=== PATIENT | female | born 1940 | race Caucasian/White ===

== ENCOUNTER 2021-09-09 12:37 | Inpatient (IN) | payer MEDICARE ==
[~2021-09-09] VITALS: Ht 160 cm; Wt 65.8 kg
[~2021-09-09 12:37] MED LIST: ASPIRIN EC81 MG PO; COREG6.25 MG PO; IBUPROFEN400 MG PO; IMDUR ER TAB 3030 MG PO; K-DUR TAB 20 M20 MEQ PO; LASIX40 MG PO; NITROSTAT0.4 MG SL; NORCO 10-325 T1 EACH PO; ULTRAM50 MG PO; ZESTRIL10 MG PO; ZESTRIL5 MG PO
[2021-09-09 13:13] LABS: HEMOGLOBIN 13.9 gm/dl (12.3-15.3); RED BLOOD COUNT 4.57 M/UL (4.00-5.10); WHITE BLOOD COUNT 7.4 K/UL (4.5-11.0)
[2021-09-09 13:32] LABS: BUN/CREATININE RATIO 35 (0-10)
[2021-09-10] MEDS ORDERED: HYDRALAZINE HCL10 MG PO (11:50)
[2021-09-10] MEDS ORDERED: COREG12.5 MG PO (11:51)
[2021-09-11 03:47] LABS: HEMOGLOBIN 13.3 gm/dl (12.3-15.3); RED BLOOD COUNT 4.4 M/UL (4.00-5.10); WHITE BLOOD COUNT 9.1 K/UL (4.5-11.0)
[2021-09-11 04:10] LABS: BUN/CREATININE RATIO 43 (0-10)
--- NOTE | 2021-09-11 18:54 | NUR ---
IV STARTED 22 GAUGE TO THE LEFT FOREARM X1 STICK PT TOLERATED WELL
[2021-09-12 03:13] LABS: HEMOGLOBIN 13.6 gm/dl (12.3-15.3); RED BLOOD COUNT 4.53 M/UL (4.00-5.10); WHITE BLOOD COUNT 9.3 K/UL (4.5-11.0)
[2021-09-12 03:45] LABS: BUN/CREATININE RATIO 51 (0-10)
--- NOTE | 2021-09-12 13:58 | NUR ---
PT OFF FLOOR FOR MODIFIED B. SWALLOW TEST. PT IN NO ACUTE DISTRESS AT THIS TIME.
--- NOTE | 2021-09-13 04:49 | NUR ---
APPROX 0430 CALLED LAB ABOUT PTT ORDER. THEY ARE SENDING SOMEONE UP TO DRAW NOW.
[2021-09-13 05:08] LABS: HEMOGLOBIN 12.4 gm/dl (12.3-15.3); RED BLOOD COUNT 4.16 M/UL (4.00-5.10)
[2021-09-13 05:17] LABS: WHITE BLOOD COUNT 5.8 K/UL (4.5-11.0)
[2021-09-14 04:52] LABS: HEMOGLOBIN 12.9 gm/dl (12.3-15.3); RED BLOOD COUNT 4.37 M/UL (4.00-5.10)
[2021-09-15 04:33] LABS: HEMOGLOBIN 12.1 gm/dl (12.3-15.3); RED BLOOD COUNT 4.12 M/UL (4.00-5.10); WHITE BLOOD COUNT 6.6 K/UL (4.5-11.0)
[2021-09-15 05:13] LABS: BUN/CREATININE RATIO 53 (0-10)
[2021-09-15] MEDS ORDERED: ASPIRIN EC81 MG PO (11:35)
[2021-09-15] MEDS ORDERED: ATORVASTATIN CA20 MG PO (11:35)
[2021-09-15] MEDS ORDERED: JANTOVEN1 MG PO (11:35)
[2021-09-15] MEDS ORDERED: HUMALOG 10100 UNITS/ SC (11:35)
[2021-09-15] MEDS ORDERED: LISINOPRIL5 MG PO (11:35)
[2021-09-15] MEDS ORDERED: GLUCOPHAGE 850850 MG PO (11:39)
--- NOTE | 2021-09-15 12:09 | NUR ---
[facility] STATES THAT THEY WILL SEND A TRUCK TO TRANSPORT PATIENT SOON THEY CAN. I MADE THE BUCKET WASH OPERATOR AWARE THAT THE PATIENTMUST BE AT THE ACCEPTING FACILITY BY 1600 AND SHE VERBALIZED UNDERSTANING.
--- NOTE | 2021-09-15 14:58 | NUR ---
[facility] STATES THAT THIS TIME THAT THEY ARE ON AN OUT OF COUNTY RUN AND THEN THEY WILL BRING THE TRUCK HERE
--- NOTE | 2021-09-15 15:37 | NUR ---
SPORTS EQUIPMENT REPAIRER CALLED AT THIS TIME AND STATED THAT THE PATIENT WILL BE TRANFERED SATURDAY DUE TO NOT HAVING AN AMBUALANCE ON TIME. PATIENT AND FAMILY MADE AWARE AT THIS TIME. I ALSO CALLED [facility] AT THIS TIME AND CANCELLED TRANSPORT.
[2021-09-16 05:08] LABS: HEMOGLOBIN 12.4 gm/dl (12.3-15.3); RED BLOOD COUNT 4.25 M/UL (4.00-5.10); WHITE BLOOD COUNT 7.4 K/UL (4.5-11.0)
[2021-09-16 05:32] LABS: BUN/CREATININE RATIO 54 (0-10)
[2021-09-17 03:24] LABS: HEMOGLOBIN 12.4 gm/dl (12.3-15.3); RED BLOOD COUNT 4.27 M/UL (4.00-5.10); WHITE BLOOD COUNT 7.6 K/UL (4.5-11.0)
[2021-09-17 03:49] LABS: BUN/CREATININE RATIO 50 (0-10)
[2021-09-17 16:59] LABS: HEMOGLOBIN 13.5 gm/dl (12.3-15.3); RED BLOOD COUNT 4.54 M/UL (4.00-5.10); WHITE BLOOD COUNT 8.8 K/UL (4.5-11.0)
[2021-09-18 04:39] LABS: HEMOGLOBIN 12.8 gm/dl (12.3-15.3); RED BLOOD COUNT 4.42 M/UL (4.00-5.10); WHITE BLOOD COUNT 8.7 K/UL (4.5-11.0)
[2021-09-18 04:55] LABS: BUN/CREATININE RATIO 37 (0-10)
[2021-09-19 09:46] LABS: HEMOGLOBIN 12.2 gm/dl (12.3-15.3); RED BLOOD COUNT 4.3 M/UL (4.00-5.10); WHITE BLOOD COUNT 7.9 K/UL (4.5-11.0)
[2021-09-19 10:15] LABS: BUN/CREATININE RATIO 35 (0-10)
--- NOTE | 2021-09-19 10:45 | NUR ---
dr tinajero aware pt seems different this morning, unable to keep her eyes open, leaning her head and increased confusion. new orders noted including a neurology consult.
[2021-09-20 03:23] LABS: HEMOGLOBIN 12.8 gm/dl (12.3-15.3); RED BLOOD COUNT 4.38 M/UL (4.00-5.10)
[2021-09-20 03:51] LABS: BUN/CREATININE RATIO 29 (0-10)
== END 2021-09-20 02:56 | disposition short-term general hospital (02) | DRG 64 ==
LOC: ER1 12:37 → MED SURG 4 09-11 10:48 → CDU 09-11 10:48 → MED SURG 4 09-11 12:09
PROVIDERS: Emergency Medicine; Internal Medicine; Physician Assistant Medical; ADMIT Internal Medicine
DX: I63.9 Cerebral infarction, unspecified (principal); I61.8 Other nontraumatic intracerebral hemorrhage; I21.9 Acute myocardial infarction, unspecified; N39.0 Urinary tract infection, site not specified; Z20.822 Contact with and (suspected) exposure to COVID-19; I42.8 Other cardiomyopathies; I50.22 Chronic systolic (congestive) heart failure; R13.10 Dysphagia, unspecified; R23.3 Spontaneous ecchymoses; I63.89 Other cerebral infarction; R47.81 Slurred speech; Z66 Do not resuscitate; G43.909 Migraine, unspecified, not intractable, without status migrainosus; I27.20 Pulmonary hypertension, unspecified; E78.5 Hyperlipidemia, unspecified; E11.9 Type 2 diabetes mellitus without complications; I44.7 Left bundle-branch block, unspecified; Z98.890 Other specified postprocedural states; Z82.49 Family history of ischemic heart disease and other diseases of the circulatory system; Z82.3 Family history of stroke; Z79.899 Other long term (current) drug therapy; Z88.0 Allergy status to penicillin
CPT/HCPCS: ECHO; 36415; 70450; 70496; 70498; 70551; 71045; 74230; 80048; 80053; 80061; 81001; 82140; 82550; 82553; 82962; 83036; 83735; 84484; 85025; 85027; 85610; 85730; 86140; 87077; 87086; 87186; 92526; 92610; 92611-GN; 93005; 93306; 94760; 96372; 97110; 97110-GP-CQ; 97162; 97166; 97530; 97530-GP-CQ; 99285; J1644; J1650; J2405; J7030; Q9967; U0002